=== PATIENT | female | born 1985 | race American Indian/Alaskan Native ===

== ENCOUNTER 2020-10-07 10:12 | Emergency (ER) | payer SELFPAY ==
[2020-10-07 11:12] LABS: Bacteria,Urine 1+ /HPF (Negative); Bilirubin,Urine NEG (Negative); Blood,Urine NEG (Negative); Color,Urine Yellow (Yellow); Hyaline Casts,Urine 1 /LPF; Mucus,Urine 2+ /HPF; Protein,Urine <15 mg/dL mg/dL (Negative); Urobilinogen,Urine < 2.0 mg/dL (<2.0)
[2020-10-07 11:14] LABS: HCG Qualitative,Urine Negative (Negative)
--- NOTE | 2020-10-07 12:05 | Emergency Department Report ---
ED Female HPI - General Chief complaint: Pain General Stated complaint: UTI PAIN Time Seen by Provider: 10/07/20 10:30 Source: patient Mode of arrival: Ambulatory Limitations: No Limitations - History of Present Illness Initial comments: 34-year-old female presents to the ER today complaining of dysuria. Patient states that her symptoms started about 1 week ago. Patient reports associated intermittent hematuria which only occurred twice, urinary frequency, urinary hesitancy and urgency. She reports low back pain which started yesterday. She denies any fever nausea vomiting pelvic or abdominal pain or any abnormal vaginal discharge. Patient states that she has a history of irregular menstrual cycles, the last time she had a period was about 1 year ago. She is status post tubal ligation. She reports no other symptoms at this time. MD Complaint: dysuria -: week(s) (1) - Related Data Previous Rx's Medication Instructions Recorded Last Taken Type Fluconazole (Nf) [Diflucan TAB] 150 mg PO ONCE #2 tablet 10/07/20 Unknown Rx Phenazopyridine [Pyridium] 200 mg PO TID #9 tab 10/07/20 Unknown Rx cephALEXin [Keflex] 500 mg PO Q8HR #30 cap 10/07/20 Unknown Rx Allergies Allergy/AdvReac Type Severity Reaction Status Date / Time No Known Allergies Allergy Unverified 07/08/20 10:29 ED Review of Systems ROS: Stated complaint: UTI PAIN Other details as noted in HPI Comment: All other systems reviewed and negative Constitutional: denies: chills, fever ENT: denies: ear pain, throat pain Respiratory: denies: cough, shortness of breath, wheezing Cardiovascular: denies: chest pain, palpitations Gastrointestinal: denies: abdominal pain, nausea, diarrhea Genitourinary: urgency, dysuria, frequency, hematuria, abnormal menses. denies: discharge Musculoskeletal: back pain Skin: denies: rash, lesions Neurological: denies: headache, weakness, paresthesias Psychiatric: denies: anxiety, depression Hematological/Lymphatic: denies: easy bleeding, easy bruising ED Past Medical Hx - Surgical History Additional Surgical History: - Social History Smoking Status: Never Smoker Substance Use Type: None - Medications Home Medications: Home Medications Medication Instructions Recorded Confirmed Last Taken Type Fluconazole (Nf) [Diflucan TAB] 150 mg PO ONCE #2 tablet 11/24/20 Unknown Rx Phenazopyridine [Pyridium] 200 mg PO TID #9 tab 10/07/20 Unknown Rx cephALEXin [Keflex] 500 mg PO Q8HR #30 cap 10/07/20 Unknown Rx ED Physical Exam - General Limitations: No Limitations General appearance: alert, in no apparent distress - Head Head exam: Present: atraumatic, normocephalic - Eye Eye exam: Present: normal appearance - ENT ENT exam: Present: mucous membranes moist - Respiratory Respiratory exam: Absent: respiratory distress - Cardiovascular Cardiovascular Exam: Present: regular rate - GI/Abdominal GI/Abdominal exam: Present: soft. Absent: distended, tenderness - Back Exam Back exam: Absent: CVA tenderness (R), CVA tenderness (L) - Neurological Exam Neurological exam: Present: alert, oriented X3, CN II-XII intact, normal gait - Psychiatric Psychiatric exam: Present: normal affect, normal mood - Skin Skin exam: Present: intact ED Course Vital Signs 10/07/20 10/07/20 10:20 12:13 Temperature 98.9 F Pulse Rate 68 Respiratory 16 18 Rate Blood Pressure 120/66 O2 Sat by Pulse 97 99 Oximetry Critical care attestation.: If time is entered above; I have spent that time in minutes in the direct care of this critically ill patient, excluding procedure time. ED Disposition Clinical Impression: UTI (urinary tract infection), Yeast vaginitis Disposition: TO HOME OR SELFCARE Is pt being admited?: No Does the pt Need Aspirin: No Condition: Stable Instructions: Vaginal Yeast Infection, Adult, Urinary Tract Infection, Adult Additional Instructions: Take the Keflex as prescribed for the UTI to make sure you complete all of the Keflex even though your symptoms are getting better. I recommend that you take a dose of the Diflucan now, and then another dose after you finish the Keflex. I recommend that you drink a lot of water. Follow-up with your primary care doctor. Return to the ER if your symptoms changes or worsens in any way. Prescriptions: Fluconazole (Nf) [Diflucan TAB] 150 mg PO ONCE #2 tablet cephALEXin [Keflex] 500 mg PO Q8HR #30 cap Phenazopyridine [Pyridium] 200 mg PO TID #9 tab Referrals: PRIMARY CARE, [Primary Care Provider] - 3-5 Days Time of Disposition: 12:16
[2020-10-07 12:32] VITALS: BP 108/66
== END 2020-10-07 12:32 | disposition home or self-care (01) ==
LOC: ED 10:12
DX: N39.0 Urinary tract infection, site not specified (principal); N76.0 Acute vaginitis; B96.89 Other specified bacterial agents as the cause of diseases classified elsewhere; Z98.890 Other specified postprocedural states
CPT/HCPCS: 81001; 81025; 99283

== ENCOUNTER 2021-04-04 06:30 | Emergency (ER) | payer SELFPAY ==
[2021-04-04 07:58] VITALS: BP 105/58
--- NOTE | 2021-04-04 08:11 | Emergency Department Report ---
ED Headache HPI - General Chief Complaint: Headache Stated Complaint: HEADACHE Time Seen by Provider: 04/04/21 08:04 Source: patient ( ) Exam Limitations: no limitations - History of Present Illness Initial Comments: This is a 35-year-old female with a history of migraines. She is complaining of a frontal headache that started yesterday around 3 PM she went to sleep the headache went away but then again this morning the headache started again frontal headache associated with nausea she has had no vomiting the pain severity scale is 5/10 she has not taken any medication at home. She states she is just been under a lot of stress. She denies fever she denies any visual changes she denies any recent trauma she denies any URI symptoms. She last took an Advil on Tuesday and has not taken anything else. Patient is well-appearing in no distress Timing/Duration: waxing and waning Head Injury Location: frontal Recent Head Trauma: no recent headache/trauma Associated Symptoms: nausea/vomiting. denies: facial pain, fever/chills, loss of consciousness, nasal congestion, nasal drainage, seizures, sinus infection, stiff neck, vision changes, weakness Allergies/Adverse Reactions: Allergies No Known Allergies Allergy (Unverified 07/08/20 10:29) Home Medications: Ambulatory Orders Fluconazole (Nf) [Diflucan TAB] 150 mg PO ONCE #2 tablet 10/07/20 Phenazopyridine [Pyridium] 200 mg PO TID #9 tab 10/07/20 cephALEXin [Keflex] 500 mg PO Q8HR #30 cap 10/07/20 Ibuprofen [Motrin] 800 mg PO Q8HR PRN #21 tablet 04/04/21 ED Review of Systems ROS: Stated complaint: HEADACHE Other details as noted in HPI Comment: All other systems reviewed and negative Constitutional: denies: fever, malaise Eyes: denies: eye pain, vision change ENT: denies: ear pain, throat pain, dental pain, hearing loss, congestion Respiratory: denies: cough, orthopnea, shortness of breath, SOB with exertion, wheezing Cardiovascular: denies: chest pain, dyspnea on exertion, edema, syncope, paroxysmal nocturnal dyspnea Endocrine: denies: excessive sweating, flushing, intolerance to cold Gastrointestinal: denies: abdominal pain, nausea, constipation, hematemesis Genitourinary: denies: dysuria Musculoskeletal: denies: back pain Skin: denies: rash Neurological: headache. denies: numbness, paresthesias, confusion, abnormal gait, vertigo, other Psychiatric: denies: anxiety, depression, auditory hallucinations, visual hallucinations, homicidal thoughts, suicidal thoughts ED Past Medical Hx - Past Medical History Previous Medical History?: Yes Hx Headaches / Migraines: Yes - Surgical History Past Surgical History?: Yes Additional Surgical History: - Social History Smoking Status: Never Smoker Substance Use Type: Alcohol - Medications Home Medications: Home Medications Medication Instructions Recorded Confirmed Last Taken Type Fluconazole (Nf) [Diflucan TAB] 150 mg PO ONCE #2 tablet 10/07/20 Unknown Rx Phenazopyridine [Pyridium] 200 mg PO TID #9 tab 10/07/20 Unknown Rx cephALEXin [Keflex] 500 mg PO Q8HR #30 cap 10/07/20 Unknown Rx Ibuprofen [Motrin] 800 mg PO Q8HR PRN #21 tablet 04/04/21 Unknown Rx ED Physical Exam - General Limitations: No Limitations General appearance: alert, in no apparent distress - Head Head exam: Present: atraumatic - Eye Eye exam: Present: normal appearance, PERRL, EOMI. Absent: conjunctival injection, periorbital swelling, periorbital tenderness - ENT ENT exam: Present: normal exam, TM's normal bilaterally - Neck Neck exam: Present: normal inspection, full ROM - Respiratory Respiratory exam: Present: normal lung sounds bilaterally. Absent: respiratory distress, wheezes, rales, rhonchi - Cardiovascular Cardiovascular Exam: Present: regular rate, normal heart sounds - Extremities Exam Extremities exam: Present: normal inspection, full ROM, normal capillary refill - Neurological Exam Neurological exam: Present: alert, oriented X3, CN II-XII intact, normal gait, motor sensory deficit - Psychiatric Psychiatric exam: Present: normal affect - Skin Skin exam: Present: warm, dry, intact, normal color ED Course Vital Signs 04/04/21 07:56 Temperature 98.8 F Pulse Rate 61 Respiratory 20 Rate Blood Pressure 105/58 O2 Sat by Pulse 99 Oximetry ED Medical Decision Making - Medical Decision Making This is a 35-year-old female with a history of migraines. She started having a frontal headache yesterday around 3 PM. She did not take anything for her headache at home. This is the usual presentation of her migraine headache it is associated with nausea. She has no fever no neck stiffness no visual disturbance, she is moving all extremities she has equal muscle strength upper and lower 5/5. She has normal gait. She is well-appearing in no distress the plan is to treat her with Motrin 800 and Benadryl she is to rest and keep yourself well-hydrated and follow-up with her primary care doctor as needed - Differential Diagnosis Headache Critical care attestation.: If time is entered above; I have spent that time in minutes in the direct care of this critically ill patient, excluding procedure time. ED Disposition Clinical Impression: Headache Qualifiers: Headache type: unspecified Headache chronicity pattern: chronic headache Intractability: not intractable Qualified Code(s): R51.9 - Headache, unspecified Disposition: TO HOME OR SELFCARE Is pt being admited?: No Does the pt Need Aspirin: No Condition: Stable Instructions: Recurrent Migraine Headache Additional Instructions: Get plenty of rest drink plenty water at least 6 to 8 glasses of water daily follow-up with Dr. Dupree in 2-3 days. Return to the emergency room for worsening symptoms such as fever no relief from headache vomiting. . Prescriptions: Ibuprofen [Motrin] 800 mg PO Q8HR PRN #21 tablet PRN Reason: Headache Referrals: ALISTAIR DUPREE MD [Staff Physician] - 3-5 Days Time of Disposition: 08:20
[2021-04-04] MEDS ORDERED: IBUPROFEN 800 MG TAB PO ONE (08:16)
[2021-04-04] MEDS ORDERED: diphenhydrAMINE 25 MG/10 ML ORAL LIQUID PO ONE (08:16)
== END 2021-04-04 08:43 | disposition home or self-care (01) ==
LOC: ED 06:30
DX: R51.9 Headache, unspecified (principal); Z98.890 Other specified postprocedural states; Z79.899 Other long term (current) drug therapy
CPT/HCPCS: 99282; Q0163

== ENCOUNTER 2021-11-27 14:10 | Emergency (ER) | payer SELFPAY ==
--- NOTE | 2021-11-27 15:07 | Emergency Department Report ---
ED Female HPI - General Chief complaint: Urogenital-Female Stated complaint: VAGINAL ITCHING Time Seen by Provider: 11/27/21 15:00 Source: patient Mode of arrival: Ambulatory Limitations: No Limitations - History of Present Illness Initial comments: 36-year-old female presents to the ER today with complaints of vaginal itching and white discharge. Patient states that her symptoms started about 2 days ago. She reports associated vaginal odor. She denies any abnormal vaginal bleeding. She states she is concerned she may have a yeast infection. Patient also reports dysuria, and she states that she has had a "eggshell" odor to her urine for a long time and is not sure what is causing it. She denies any hematuria, urinary frequency or urgency. She reports no abdominal pelvic pain or lower back pain. She is status post tubal ligation, she states that the last time she had a menstrual cycle was about 2 months ago but she does not think she is . She states that she is sexually active with the same sexual partner. MD Complaint: vaginal discharge, dysuria, other (vaginal itching) -: days(s) (2) - Related Data Previous Rx's Medication Instructions Recorded Last Taken Type Phenazopyridine [Pyridium] 200 mg PO TID #9 tab 10/07/20 Unknown Rx cephALEXin [Keflex] 500 mg PO Q8HR #30 cap 10/07/20 Unknown Rx Ibuprofen [Motrin] 800 mg PO Q8HR PRN #21 tablet 04/04/21 Unknown Rx DOXYCYCLINE Hyclate [Vibramycin 100 mg PO Q12HR #14 capsule 11/27/21 Unknown Rx CAP] Fluconazole [Diflucan TAB] 200 mg PO QDAY #2 tablet 11/27/21 Unknown Rx metroNIDAZOLE [Flagyl] 500 mg PO Q12HR #14 tab 11/27/21 Unknown Rx Allergies Allergy/AdvReac Type Severity Reaction Status Date / Time No Known Allergies Allergy Unverified 07/08/20 10:29 ED Review of Systems ROS: Stated complaint: VAGINAL ITCHING Other details as noted in HPI Comment: All other systems reviewed and negative Constitutional: denies: chills, fever Respiratory: denies: cough, shortness of breath, wheezing Cardiovascular: denies: chest pain, palpitations Gastrointestinal: denies: abdominal pain, nausea, diarrhea Genitourinary: dysuria, discharge, other (vaginal itching). denies: urgency, frequency, hematuria, abnormal menses, dyspareunia Musculoskeletal: denies: back pain, joint swelling, arthralgia Skin: denies: rash, lesions Neurological: denies: headache, weakness, numbness, paresthesias, confusion, abnormal gait, vertigo Psychiatric: denies: anxiety, depression, auditory hallucinations, visual hallucinations, homicidal thoughts, suicidal thoughts Hematological/Lymphatic: denies: easy bleeding, easy bruising ED Past Medical Hx - Past Medical History Previous Medical History?: Yes Hx Headaches / Migraines: Yes - Surgical History Past Surgical History?: Yes Additional Surgical History: - Social History Smoking Status: Never Smoker Substance Use Type: Alcohol - Medications Home Medications: Home Medications Medication Instructions Recorded Confirmed Last Taken Type Phenazopyridine [Pyridium] 200 mg PO TID #9 tab 10/07/20 Unknown Rx cephALEXin [Keflex] 500 mg PO Q8HR #30 cap 10/07/20 Unknown Rx Ibuprofen [Motrin] 800 mg PO Q8HR PRN #21 tablet 04/04/21 Unknown Rx DOXYCYCLINE Hyclate [Vibramycin 100 mg PO Q12HR #14 capsule 11/27/21 Unknown Rx CAP] Fluconazole [Diflucan TAB] 200 mg PO QDAY #2 tablet 11/27/21 Unknown Rx metroNIDAZOLE [Flagyl] 500 mg PO Q12HR #14 tab 11/27/21 Unknown Rx ED Physical Exam - General Limitations: No Limitations General appearance: alert, in no apparent distress - Head Head exam: Present: atraumatic, normocephalic, normal inspection - Eye Eye exam: Present: normal appearance, PERRL, EOMI Pupils: Present: normal accommodation - Neck Neck exam: Present: normal inspection, full ROM. Absent: meningismus - Respiratory Respiratory exam: Present: normal lung sounds bilaterally. Absent: respiratory distress, wheezes, rales, rhonchi - Cardiovascular Cardiovascular Exam: Present: regular rate, normal rhythm, normal heart sounds - GI/Abdominal GI/Abdominal exam: Present: soft. Absent: distended, tenderness, guarding, rebound - External exam: Present: normal external exam, other ([employer] present ) Speculum exam: Present: vaginal discharge (small amount of white thick d/c). Absent: erythema, vaginal bleeding, foreign body, tissue, laceration, other Bi-manual exam: Present: normal bi-manual exam - Neurological Exam Neurological exam: Present: alert, oriented X3, CN II-XII intact, normal gait - Psychiatric Psychiatric exam: Present: normal affect, normal mood ED Course Vital Signs 11/27/21 11/27/21 14:46 16:55 Temperature 98.3 F 98.7 F Pulse Rate 79 79 Respiratory 16 18 Rate Blood Pressure 132/60 116/70 [Left] O2 Sat by Pulse 98 100 Oximetry ED Medical Decision Making - Medical Decision Making 1707: Labs reviewed -wet prep shows bacterial vaginosis, trichomonas and yeast. Urinalysis I suspect to be mostly contaminated with true UTI, but urine culture is pending and if positive will start patient on antibiotics to treat. In the meantime patient will be treated for chlamydia infections, she also opted to get prophylactic treatment for gonorrhea and chlamydia for which she will be given IM Rocephin injection and prescription for doxycycline. Discussed all results with patient. Discussed treatment plan patient. She has no pelvic or abdominal pain. Pelvic exam showed no CMT or significant adnexal tenderness or swelling. Patient informed that her partner should also be tested and treated. Patient expressed understanding and agreed with plan. Patient stable at time of discharge. Critical care attestation.: If time is entered above; I have spent that time in minutes in the direct care of this critically ill patient, excluding procedure time. ED Disposition Clinical Impression: Trichomonas vaginitis, Bacterial vaginosis, Yeast vaginitis Disposition: HOME / SELF CARE / HOMELESS Is pt being admited?: No Does the pt Need Aspirin: No Condition: Stable Instructions: Vaginal Yeast Infection, Adult, Bacterial Vaginosis, [id number], Trichomoniasis, Bacterial Vaginosis (ED) Additional Instructions: I recommend you take the Flagyl and the doxycycline and to completion. Take both with food as they can cause some GI upset. Do not drink alcohol while she take the antibiotics. Take the Diflucan as discussed. Your partner should also be tested and treated and he can follow-up with local urgent care or health department for testing and treatment. I recommend no sexual intercourse for 7 days after treatment. Return to the ER if your symptoms worsens or changes in any way Prescriptions: Fluconazole [Diflucan TAB] 200 mg PO QDAY #2 tablet metroNIDAZOLE [Flagyl] 500 mg PO Q12HR #14 tab DOXYCYCLINE Hyclate [Vibramycin CAP] 100 mg PO Q12HR #14 capsule Referrals: PRIMARY CARE [Primary Care Provider] - 3-5 Days [facility] [Provider Group] - 3-5 Days [facility] [Provider Group] - 3-5 Days Forms: STI Treatment and Prevention Time of Disposition: 17:04
[2021-11-27] MEDS ORDERED: LIDOCAINE-MPF (1%) 10 MG/1 ML VIAL 5 ML INFILTRATI ONE (16:26)
[2021-11-27 16:53] LABS: Bilirubin,Urine NEG (Negative); Blood,Urine NEG (Negative); Color,Urine Yellow (Yellow); Mucus,Urine 3+ /HPF; Protein,Urine <15 mg/dL mg/dL (Negative)
[2021-11-27 16:57] VITALS: BP 116/70
[2021-11-27 16:58] LABS: HCG Qualitative,Urine Negative (Negative)
== END 2021-11-27 17:12 | disposition home or self-care (01) ==
LOC: ED 14:10
DX: N76.0 Acute vaginitis (principal); B37.3 Candidiasis of vulva and vagina; A59.01 Trichomonal vulvovaginitis; G43.909 Migraine, unspecified, not intractable, without status migrainosus
CPT/HCPCS: 81001; 81025; 87086; 87210; 96372; 99284; J0696; J3490

== ENCOUNTER 2022-02-14 10:00 | Emergency (ER) | payer SELFPAY ==
[2022-02-14 10:26] VITALS: BP 107/71
== END 2022-02-14 12:38 | disposition home or self-care (01) ==
LOC: ED 10:00
DX: Z00.00 Encounter for general adult medical examination without abnormal findings (principal); Z53.21 Procedure and treatment not carried out due to patient leaving prior to being seen by health care provider